=== PATIENT | male | born 1985 | race Caucasian/White ===

== ENCOUNTER 2017-01-03 21:28 | Emergency (ER) | payer BC, OTHER ==
[~2017-01-03] VITALS: Ht 167.6 cm; Wt 87.0 kg
[~2017-01-03 21:28] MED LIST: CHLO25 PO; METH40TA9 PO; XANA1TAB6 PO
[2017-01-03 21:45] VITALS: BP 123/87; PULSE 89; RESP 15; TEMP 98.2; O2SAT 97
[2017-01-03] MEDS ORDERED: CLON1 PO (22:58)
[2017-01-03] MEDS ORDERED: CYCL1TAB29 PO (22:58)
[2017-01-03] MEDS ORDERED: METH10TA PO (22:58)
[2017-01-04] MEDS ORDERED: KETOROLAC TROMETHAMINE 60 MG/2 ML (IM) VIAL IM ONE (00:15)
[2017-01-04] MEDS ORDERED: DIAZEPAM 5 MG TAB PO ONE (00:15)
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
--- NOTE | 2017-01-04 00:46 | RADRPT ---
EXAM DATE/TIME: 01/04/2017 00:31 [facility] COMPARISON: No previous studies available for comparison. INDICATIONS : Left hip pain post fall. MEDICAL HISTORY : None. SURGICAL HISTORY : None. ENCOUNTER: Initial ACUITY: 1 day PAIN SCORE: 6/10 LOCATION: Left hip. FINDINGS: Examination of the left hip was performed with AP Pelvis. The primary and secondary trabecular patte rn of the femoral neck is intact. The hip joint is of normal width without significant sclerosis or bony hypertrophy. The acetabulum is grossly intact. CONCLUSION: No acute fracture. Cih Cornejo MD on January 04, 2017 at 0:45 Board Certified Radiologist. This report was verified electronically.
--- NOTE | 2017-01-04 00:48 | RADRPT ---
EXAM DATE/TIME: 01/04/2017 00:31 [facility] COMPARISON: No previous studies available for comparison. INDICATIONS : Left knee pain post fall. MEDICAL HISTORY : None. SURGICAL HISTORY : None. ENCOUNTER: Initial ACUITY: 1 day PAIN SCORE: 6/10 LOCATION: Left knee. FINDINGS: Two view examination of the left knee demonstrates no evidence of fracture or dislocation. Bony mine ralization is normal. The suprapatellar soft tissues have a normal configuration. CONCLUSION: No acute fracture. Chi Cornejo MD on January 04, 2017 at 0:46 Board Certified Radiologist. This report was verified electronically.
== END 2017-01-04 01:24 | disposition home or self-care (01) ==
LOC: NEPD 21:28
DX: M25.562 Pain in left knee (principal); W01.0XXA Fall on same level from slipping, tripping and stumbling without subsequent striking against object, initial encounter; Y92.59 Other trade areas as the place of occurrence of the external cause
CPT/HCPCS: 73502; 73560; 96372; 99284; J1885

== ENCOUNTER 2017-10-07 04:52 | Inpatient (IN) ==
[2017-10-07] MEDS ORDERED: Sod Chloride 0.9% Inj 2,000 ML IV.SIG ONE (05:12)
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
--- NOTE | 2017-10-07 05:41 | XR ---
EXAM DATE: 10/07/2017 5:34 AM EDT AGE/SEX: 32 years / Male INDICATIONS: Fever. CLINICAL DATA: This is the patient's initial encounter. Patient reports that signs and symptoms have been present for 1 day and indicates a pain score of 0/10. MEDICAL/SURGICAL HISTORY: None. None. COMPARISON: No prior exams available for comparison. FINDINGS: A single AP view of the chest demonstrates the lungs to be symmetrically aerated without evidence of mass, infiltrate or effusion. The cardiomediastinal contours are unremarkable. Osseous structures a re intact. CONCLUSION: 1. No acute cardiopulmonary disease. Electronically signed by: Renny Ramachandran MD 10/07/2017 5:39 AM EDT
[2017-10-07 05:55] LABS: Baso % (Auto) 0.1 % (0.0-2.0); Eos % (Auto) 0.1 % (0.0-4.0); Hematocrit 39.6 % (39.0-51.0); Hemoglobin 13.4 gm/dL (13.0-17.0); Lymph # (Auto) 0.7 th/mm3 (1.0-4.8); Lymph % (Auto) 9.7 % (9.0-44.0); Mean Corpuscular HGB Conc 33.9 % (32.0-36.0); Mean Corpuscular Hemoglobin 28.5 pg (27.0-34.0); Mean Platelet Volume 9.6 fL (7.0-11.0); Mono # (Auto) 0.7 th/mm3 (0.0-0.9); Mono % (Auto) 9.1 % (0.0-8.0); Neut # (Auto) 6.3 th/mm3 (1.8-7.7); Platelet Count 238 th/mm3 (150-450); Red Blood Count 4.72 mil/mm3 (4.50-5.90); Red Cell Distribution Width 14.4 % (11.6-17.2); White Blood Count 7.8 th/mm3 (4.0-11.0)
[2017-10-07 06:00] LABS: Alanine Aminotransferase 43 U/L (12-78); Albumin 4.3 g/dL (3.4-5.0); Anion Gap 10 meq/L (5-15); Aspartate Aminotransferase 73 U/L (15-37); Blood Urea Nitrogen 18 mg/dL (7-18); Calcium 9.6 mg/dL (8.5-10.1); Carbon Dioxide 25.3 meq/L (21.0-32.0); Chloride 106 meq/L (98-107); Glomerular Filtration Rate 62 mL/min (>89); Glucose,Random 93 mg/dL (74-106); Potassium 4.4 meq/L (3.5-5.1); Sodium 141 meq/L (136-145)
[2017-10-07 06:14] LABS: Alkaline Phosphatase 114 U/L (45-117); Creatine Kinase 3163 U/L (39-308); Total Protein 8.5 g/dL (6.4-8.2)
[2017-10-07 06:29] LABS: CKMB Percent 0.7 % (0.0-4.0); Creatine Kinase MB 23.5 ng/mL (0.5-3.6)
[2017-10-07] MEDS ORDERED: Sod Chloride 0.9% Inj 1,000 ML IV.SIG ONE ×3 (06:50→06:53)
[2017-10-07] MEDS ORDERED: Bisacodyl 10 MG Supp RECTAL PRN (08:08)
[2017-10-07] MEDS ORDERED: Acetaminophen 325 MG Tablet PO PRN (08:08)
[2017-10-07] MEDS ORDERED: Sod Chloride 0.9% Inj 1,000 ML IV.CONT SCH (08:15)
[2017-10-07] MEDS ORDERED: Senna/Docusate Sodium 8.6/50 MG Tablet PO SCH (09:00)
[2017-10-07 09:29] LABS: Amorphous Sediment,Urine Rare /hpf; Bilirubin,Urine Negative (Negative); Clarity,Urine Cloudy (Clear); Color,Urine Yellow (Yellw/Straw); Glucose,Urine (UA) Negative (Negative); Hyaline Casts,Urine 4 /lpf (0-3); Leukocyte Esterase,Urine Negative (Negative); Mucus,Urine Few /lpf (Occasional); Nitrite,Urine Negative (Negative); Specific Gravity,Urine 1.027 (1.002-1.035)
[2017-10-07 09:31] LABS: Amphetamine Screen,Urine Pos (Neg); Barbiturate Screen,Urine Neg (Neg); Cannabinoid Screen,Urine Neg (Neg); Cocaine Screen,Urine Pos (Neg)
[2017-10-07 09:44] LABS: Opiate Screen,Urine Neg (Neg)
[2017-10-07] MEDS ORDERED: Phenol 1.4% 180 ML Spray Bottle OROPHARYNG PRN (12:31)
[2017-10-07] MEDS ORDERED: Menthol 5.8 MG Lozenge BUCCAL PRN (12:31)
--- NOTE | 2017-10-07 12:33 | P.HP ---
History of Present Illness Primary Care Physician: No Primary Care Physician History of Present Illness: This is a 32-year-old male who was brought in under police Scifiniti act. He apparently barricaded himself inside his house and was convinced that someone was trying to break into his house. He was evaluated by psychiatry who lifted Jonas act. States it is substance induced. Patient states he called the police because his friend who was belligerent was trying to break into his house. He has been hospitalized because of rhabdomyolysis CK over 3000. States he has been working on his motorcycle in his garage has not been hydrating well. He complains of chronic back and left knee pain. Denies illicit drug use. He is on methadone, Adderall and Klonopin. All other systems reviewed negative Inpatient Certification: I certify that the inpatient services were ordered in accordance with Medicare regulations governing the order. This includes certification that hospital inpatient services are reasonable and necessary and in the case of services not specified as inpatient-only under 42 CFR 419.22(n), that they are appropriately provided as inpatient services in accordance to with the 2-midnight benchmark under 43 CFR 412.3(e) Estimated Total Length of Stay (Days): 2 Plans for Post Hospital Care: Not yet determined Review of Systems All other systems reviewed negative except as stated in HPI PMFSH - History History Provided By: Patient - Medical History Medical History: Medical History (Last Reviewed 10/07/17 @ 13:30 by Renata Fraser) Left knee pain (Acute) Back pain - Surgical History Surgical History: Surgical History (Last Updated 10/07/17 @ 15:02 by Juan Kent MD) H/O left knee surgery - Family History Family History: Family History (Last Updated 10/07/17 @ 15:02 by Juan Kent MD) Other CAD (coronary artery disease) - Tobacco History Second Hand Smoke Exposure: Yes Tobacco Use In Past 30 Days: Yes Smoking Status: Current every day smoker Tobacco Type: Cigarettes - Alcohol History How Often Do You Have a Drink Containing Alcohol: Never - Substance Use History Substance History: Past History - Travel History Recent Travel in the [place] Within the Last 8 Weeks: No Recent Travel Out of the Country Within the Last 8 Weeks: No - Immunization History Tetanus Immunization: <5 Years Hx Influenza Vaccine This Season: No Medications and Allergies Active Medications: Active Medications Acetaminophen (Tylenol) 650 mg PO Q4H PRN PRN Reason: Temp > 100.4 Al Hydroxide/Mg Hydroxide (Milk Of Magnesia Liq) 30 ml PO Q12H PRN PRN Reason: Mild Constipation Amphetamine/Dextroamphetamine (Adderall) 20 mg PO TID [facility] Bisacodyl (Dulcolax Supp) 10 mg RECTAL DAILY PRN PRN Reason: SEVERE CONSITIPATION Cyclobenzaprine HCl (Flexeril) 10 mg PO TID [facility] Sodium Chloride (Ns Inj) 1,000 mls @ 100 mls/hr IV.CONT .Q10H [facility] Last Admin: 10/07/17 08:56 Dose: 100 mls/hr Lactulose (Lactulose Liq) 30 ml PO DAILY PRN PRN Reason: SEVERE CONSITIPATION Menthol ([place]) 1 lozenge BUCCAL Q1H PRN PRN Reason: SORE THROAT Methadone HCl (Dolophine) 10 mg PO Q4H [facility] Non-Formulary Medication (Clonazepam [Klonopin]) 2 mg PO TID [facility] Ondansetron HCl (Zofran Inj) 4 mg IV.PUSH Q6H PRN PRN Reason: NAUSEA OR VOMITING Senna/Docusate Sodium (Jeni-Colace) 1 tab PO BID [facility] Last Admin: 10/07/17 08:55 Dose: Not Given Sennosides (Senokot) 17.2 mg PO Q12H PRN PRN Reason: Moderate Constipation Throat Lozenges (Chloraseptic [place]) 2 spray OROPHARYNG Q2H PRN PRN Reason: SORE THROAT Allergies Allergy/AdvReac Type Severity Reaction Status Date / Time No Known Allergies Allergy Unverified 10/07/17 05:06 Home Medications Medication Instructions Recorded Confirmed Type clonazepam [Klonopin] 2 mg PO TID 10/07/17 10/07/17 History cyclobenzaprine 10 mg PO TID 10/07/17 10/07/17 History dextroamphetamine-amphetamine 20 mg PO TID 10/07/17 10/07/17 History [Adderall] ibuprofen 800 mg PO TID 10/07/17 10/07/17 History methadone 10 mg PO Q4H 10/07/17 10/07/17 History oxycodone-acetaminophen [Percocet] 1 tab PO Q4-6H PRN 10/07/17 10/07/17 History Exam Vital signs: Vital Signs 10/07/17 04:59 10/07/17 05:35 10/07/17 07:30 Temperature 100.8 F H 99.0 F Pulse Rate 131 H 98 H Respiratory Rate 16 17 Blood Pressure 175/83 H 107/60 Pulse Oximetry 97 97 10/07/17 08:54 10/07/17 11:34 Temperature 98.8 F Pulse Rate 93 H 90 Respiratory Rate 17 18 Blood Pressure 109/65 115/68 Pulse Oximetry 96 97 Intake & Output 10/06/17 10/07/17 10/07/17 18:59 06:59 18:59 Intake Total 3000 / 3000 Output Total 600 / 600 Balance 2400 / 2400 Weight 90.718 kg Intake: IV 3000 / 3000 NS Inj 1,000 ML @ Wide Open IV. 3000 / 3000 SIG BOLUS ONE Rx#:[id number] Output: Urine 600 / 600 Narrative: GENERAL: Well-developed and well-nourished in no distress SKIN: Warm and dry. HEAD: Atraumatic. Normocephalic. EYES: Pupils equal and round. No scleral icterus. No injection or drainage. ENT: No nasal bleeding or discharge. Mucous membranes pink and moist. NECK: Trachea midline. No JVD. CARDIOVASCULAR: Regular rate and rhythm. RESPIRATORY: No accessory muscle use. Clear to auscultation. Breath sounds equal bilaterally. GASTROINTESTINAL: Abdomen soft, non-tender, nondistended. MUSCULOSKELETAL: Extremities without clubbing, cyanosis, or edema. No obvious deformities. NEUROLOGICAL: Awake and alert. No obvious cranial nerve deficits. Motor grossly within normal limits. Five out of 5 muscle strength in the arms and legs. Normal speech. PSYCHIATRIC: Appropriate mood and affect; insight and judgment normal. Results - Labs CBC & Chem 7: 10/07/17 05:10 10/07/17 05:10 Labs: Laboratory Results - last 24 hr 10/07/17 10/07/17 10/07/17 05:10 05:10 05:10 WBC 7.8 RBC 4.72 Hgb 13.4 Hct 39.6 MCV 84.0 MCH 28.5 MCHC 33.9 RDW 14.4 Plt Count 238 MPV 9.6 Neut % (Auto) 81.0 H Lymph % (Auto) 9.7 [place] % (Auto) 9.1 H Eos % (Auto) 0.1 Baso % (Auto) 0.1 Neut # (Auto) 6.3 Lymph # (Auto) 0.7 L [place] # (Auto) 0.7 Eos # (Auto) 0.0 Baso # (Auto) 0.0 WBC Differential . Differential Comment Auto diff final Sodium 141 Potassium 4.4 Chloride 106 Carbon Dioxide 25.3 Anion Gap 10 BUN 18 Creatinine 1.32 H Estimated GFR 62 L Random Glucose 93 Lactic Acid Calcium 9.6 Total Bilirubin 0.5 AST 73 H ALT 43 Alkaline Phosphatase 114 Total Creatine Kinase 3163 H CK-MB (CK-2) 23.5 H CK-MB (CK-2) % 0.7 Total Protein 8.5 H Albumin 4.3 TSH 4.900 H Urine Color Urine Clarity Urine pH Ur Specific [place] Urine Protein Urine Glucose (UA) Urine Ketones Urine Occult Blood Urine Nitrate Urine Bilirubin Urine Urobilinogen Ur Leukocyte Esterase Urine RBC Urine WBC Amorphous Sediment Hyaline Casts Urine Mucus Micro UA Comment Urine Culture Comments Salicylates Less than 1.7 L Urine Opiates Screen Acetaminophen Less than 2.0 L Ur Barbiturates Screen Ur Amphetamines Screen U Benzodiazepines Scrn Urine Cocaine Screen U Cannabinoids Screen Serum Alcohol Less than 3 10/07/17 10/07/17 10/07/17 05:30 09:05 09:05 WBC RBC Hgb Hct MCV MCH MCHC RDW Plt Count MPV Neut % (Auto) Lymph % (Auto) [place] % (Auto) Eos % (Auto) Baso % (Auto) Neut # (Auto) Lymph # (Auto) [place] # (Auto) Eos # (Auto) Baso # (Auto) WBC Differential Differential Comment Sodium Potassium Chloride Carbon Dioxide Anion Gap BUN Creatinine Estimated GFR Random Glucose Lactic Acid 1.5 Calcium Total Bilirubin AST ALT Alkaline Phosphatase Total Creatine Kinase CK-MB (CK-2) CK-MB (CK-2) % Total Protein Albumin TSH Urine Color Yellow Urine Clarity Cloudy H Urine pH 5.0 Ur Specific [place] 1.027 Urine Protein 30 H Urine Glucose (UA) Negative Urine Ketones Negative Urine Occult Blood Negative Urine Nitrate Negative Urine Bilirubin Negative Urine Urobilinogen Less than 2 Ur Leukocyte Esterase Negative Urine RBC Less than 1 Urine WBC 3 Amorphous Sediment Rare H Hyaline Casts 4 Urine Mucus Few H Micro UA Comment Culture not ind Urine Culture Comments Culture not ind Salicylates Urine Opiates Screen Neg Acetaminophen Ur Barbiturates Screen Neg Ur Amphetamines Screen Pos H U Benzodiazepines Scrn Pos H Urine Cocaine Screen Pos H U Cannabinoids Screen Neg Serum Alcohol - Imaging Impressions Chest X-Ray 10/07/17 05:12 CONCLUSION: 1. No acute cardiopulmonary disease. Caprini VTE Risk Assessment Caprini VTE Risk Assessment: No/Low Risk (score <= 1) Caprini Risk Assessment Model: Point Value = 1 Point Value = 2 Point Value = 3 Point Value = 5 Age 41-60 Minor surgery BMI > 25 kg/m2 Swollen legs Varicose veins or History of unexplained or recurrent spontaneous Oral contraceptives or hormone replacement Sepsis (< 1 month) Serious lung disease, including pneumonia (< 1 month) Abnormal pulmonary function Acute myocardial infarction Congestive heart failure (< 1 month) History of inflammatory bowel disease Medical patient at bed rest Age 61-74 Arthroscopic surgery Major open surgery (> 45 min) Laparoscopic surgery (> 45 min) Malignancy Confined to bed (> 72 hours) Immobilizing plaster cast Central venous access Age >= 75 History of VTE Family history of VTE Factor V Leiden Prothrombin [id number] Lupus anticoagulant Anticardiolipin antibodies Elevated serum homocysteine Heparin-induced thrombocytopenia Other congenital or acquired thrombophilia Stroke (< 1 month) Elective arthroplasty Hip, pelvis, or leg fracture Acute spinal cord injury (< 1 month) Prophylaxis Regimen: Total Risk Factor Score Risk Level Prophylaxis Regimen 0-1 Low Early ambulation 2 Moderate Order ONE of the following: *Sequential Compression Device (SCD) *Heparin 5000 units SQ BID 3-4 Higher Order ONE of the following medications: *Heparin 5000 units SQ TID *Enoxaparin/Lovenox 40 mg SQ daily (WT < 150 kg, CrCl > 30 mL/min) *Enoxaparin/Lovenox 30 mg SQ daily (WT < 150 kg, CrCl > 10-29 mL/min) *Enoxaparin/Lovenox 30 mg SQ BID (WT < 150 kg, CrCl > 30 mL/min) AND/OR *Sequential Compression Device (SCD) 5 or more Highest Order ONE of the following medications: *Heparin 5000 units SQ TID (Preferred with Epidurals) *Enoxaparin/Lovenox 40 mg SQ daily (WT < 150 kg, CrCl > 30 mL/min) *Enoxaparin/Lovenox 30 mg SQ daily (WT < 150 kg, CrCl > 10-29 mL/min) *Enoxaparin/Lovenox 30 mg SQ BID (WT < 150 kg, CrCl > 30 mL/min) AND *Sequential Compression Device (SCD) Assessment and Plan - Plan This is a 32-year-old male who was brought in under police Scifiniti act. He apparently barricaded himself inside his house and was convinced that someone was trying to break into his house. He was evaluated by psychiatry who lifted Jonas act. States it is substance induced. Patient states he called the police because his friend who was belligerent was trying to break into his house. He has also been hospitalized because of rhabdomyolysis CK over 3000. Rhabdomyolysis. Received 4 L IV fluid in the emergency department. Continue IV hydration and monitor CK. Follow-up urine drug screen. SIRS secondary to above. Chest x-ray interpreted by me unremarkable. Patient complaining of sore throat examination unremarkable. Negative strep and flu screen. Follow-up blood cultures. Acute kidney injury secondary to rhabdomyolysis. As above. Avoid nephrotoxins. Repeat BMP in the morning Chronic back pain, ADHD and generalized anxiety. Will continue home medications for now to avoid withdrawal patient has been educated on the use of narcotic and benzodiazepines. If UDS comes back positive, will contact prescribing MD Discharge Planning: Home in 1-2 days
[2017-10-07] MEDS: clonazePAM 1 MG Tablet PO SCH ×2 (13:32→17:25)
[2017-10-07] MEDS ORDERED: Methadone 10 MG Tablet PO SCH (14:00)
[2017-10-07] MEDS ORDERED: Methadone 10 MG Tablet PO ONE (14:00)
[2017-10-07] MEDS: Amphetamine/Dextroamphetamine 20 MG Tablet PO SCH ×2 (14:59→17:25)
--- NOTE | 2017-10-07 16:06 | P.CONPSY ---
Provisional Diagnosis Admission Date: October 07, 2017 11:02 [place].: Polysubstance dependence including amphetamines, cocaine, cannabis, substance- induced mood disorder, history of anxiety and ADHD History of Present Illness Service: ER Primary Care Provider: No Primary Care Physician Family Provider: No Primary Care Physician History of Present Illness: The patient is a 32-year-old man, domiciled with his parents, single, unemployed, with self-reported psychiatric history of ADHD anxiety, no previous psychiatric hospitalizations, he reports that he has a psychiatrist when he does not remember the name prescribing him Adderall 20 mg 3 times daily, clonazepam 2 mg 3 times daily, who presents under Jonas act initially by the Police Department. According to his paperwork the patient apparently barricaded himself inside of his house and harm to himself and was convinced that someone was trying to break into his house. He called the police and asked that they were the ones were knocking on his door. He believes that the police were the ones were knocking on his door because he has a felony record any assume that there would be only ones that would be knocking on his door the middle of the night. He denies any feelings of paranoia. He denies any drug or alcohol use. He denies any suicidal or homicidal ideation, hallucinations. The patient's temperature is noted to be 100.8 and he is tachycardic. He does report that he may be dehydrated, he reports that he has been working out in the heat a lot not hydrating well. He has been working on his motorcycle. During review of systems he does endorse a sore throat today. He denies cough, congestion, chest pain, shortness of breath, abdominal pain, nausea vomiting, diarrhea, neck stiffness. Denies any IV drug use. He does report that he is on methadone prescribed. He has no other complaints. Patient is being admitted in medicine due to elevated CPK, SILAS and SIRS. On my psychiatric evaluation today the patient is calm, cooperative, he denies symptoms of depression at the moment. He is clinically sober. Logical, coherent and relevant. He claims that he does not remember the circumstances that brought him to the hospital on the Jonas act. At the same time he denies the use of cocaine and cannabis, and he says that he just uses he is prescribed clonazepam 2 mg 4 times per day and Adderall 20 mg 3 times daily, but he is unable to tell me who is prescribing him this medications. Denies suicidal enemas ideation, he denies visual and auditory hallucinations. [facility] - History History Provided By: Patient - Medical History Medical History: Medical History (Last Reviewed 10/07/17 @ 13:30 by Renata Fraser) Left knee pain (Acute) Back pain - Surgical History Surgical History: Surgical History (Last Updated 10/07/17 @ 15:02 by Juan Kent MD) H/O left knee surgery - Family History Family History: Family History (Last Updated 10/07/17 @ 15:02 by Juan Kent MD) Other CAD (coronary artery disease) - Tobacco History Second Hand Smoke Exposure: Yes Tobacco Use In Past 30 Days: Yes Smoking Status: Current every day smoker Tobacco Type: Cigarettes - Alcohol History How Often Do You Have a Drink Containing Alcohol: Never - Substance Use History Substance History: Past History - Travel History Recent Travel in the [place] Within the Last 8 Weeks: No Recent Travel Out of the Country Within the Last 8 Weeks: No - Immunization History Tetanus Immunization: <5 Years Hx Influenza Vaccine This Season: No Medications and Allergies Active Medications: Active Medications Acetaminophen (Tylenol) 650 mg PO Q4H PRN PRN Reason: Temp > 100.4 Last Admin: 10/07/17 14:29 Dose: 650 mg Al Hydroxide/Mg Hydroxide (Milk Of Magnesia Liq) 30 ml PO Q12H PRN PRN Reason: Mild Constipation Amphetamine/Dextroamphetamine (Adderall) 20 mg PO TID [facility] Last Admin: 10/07/17 14:59 Dose: 20 mg Bisacodyl (Dulcolax Supp) 10 mg RECTAL DAILY PRN PRN Reason: SEVERE CONSITIPATION Clonazepam (Klonopin) 2 mg PO TID [facility] Last Admin: 10/07/17 13:32 Dose: 2 mg Cyclobenzaprine HCl (Flexeril) 10 mg PO TID [facility] Last Admin: 10/07/17 13:32 Dose: 10 mg Sodium Chloride (Ns Inj) 1,000 mls @ 100 mls/hr IV.CONT .Q10H [facility] Last Admin: 10/07/17 08:56 Dose: 100 mls/hr Lactulose (Lactulose Liq) 30 ml PO DAILY PRN PRN Reason: SEVERE CONSITIPATION Menthol (Start) 1 lozenge BUCCAL Q1H PRN PRN Reason: SORE THROAT Methadone HCl (Dolophine) 60 mg PO DAILY [facility] Ondansetron HCl (Zofran Inj) 4 mg IV.PUSH Q6H PRN PRN Reason: NAUSEA OR VOMITING Senna/Docusate Sodium (Jeni-Colace) 1 tab PO BID [facility] Last Admin: 10/07/17 08:55 Dose: Not Given Sennosides (Senokot) 17.2 mg PO Q12H PRN PRN Reason: Moderate Constipation Throat Lozenges (Chloraseptic [place]) 2 spray OROPHARYNG Q2H PRN PRN Reason: SORE THROAT Allergies Allergy/AdvReac Type Severity Reaction Status Date / Time No Known Allergies Allergy Unverified 10/07/17 05:06 Home Medications Medication Instructions Recorded Confirmed Type clonazepam [Klonopin] 2 mg PO TID 10/07/17 10/07/17 History cyclobenzaprine 10 mg PO TID 10/07/17 10/07/17 History dextroamphetamine-amphetamine 20 mg PO TID 10/07/17 10/07/17 History [Adderall] ibuprofen 800 mg PO TID 10/07/17 10/07/17 History methadone 10 mg PO Q4H 10/07/17 10/07/17 History oxycodone-acetaminophen [Percocet] 1 tab PO Q4-6H PRN 10/07/17 10/07/17 History Exam Vital signs: Vital Signs 10/07/17 04:59 10/07/17 05:35 10/07/17 07:30 Temperature 100.8 F H 99.0 F Pulse Rate 131 H 98 H Respiratory Rate 16 17 Blood Pressure 175/83 H 107/60 Pulse Oximetry 97 97 10/07/17 08:54 10/07/17 11:34 Temperature 98.8 F Pulse Rate 93 H 90 Respiratory Rate 17 18 Blood Pressure 109/65 115/68 Pulse Oximetry 96 97 Intake & Output 10/06/17 10/07/17 10/07/17 18:59 06:59 18:59 Intake Total 3000 / 3000 Output Total 600 / 600 Balance 2400 / 2400 Weight 90.718 kg Intake: IV 3000 / 3000 NS Inj 1,000 ML @ Wide Open IV. 3000 / 3000 SIG BOLUS ONE Rx#:[id number] Output: Urine 600 / 600 Other: Date of Last Bowel Movement 10/06/17 Mental Status Examination Appearance: Appropriate Consciousness: Alert Orientation: x4 Motor Activity: Normal gait Speech: Unremarkable Language: Adequate Fund of Knowledge: Adequate Attention and Concentration: Adequate Memory: Unremarkable Affect: Appropriate Thought Process & Associations: Intact Thought Content: Appropriate Hallucination Type: None Delusion Type: None Suicidal Ideation: No Suicidal Plan: No Suicidal Intention: No Homicidal Ideation: No Homicidal Plan: No Homicidal Intention: No Insight: Fair Judgment: Impulsive Assessment and Plan - Assessment (1) Polysubstance dependence Code(s): F19.20 - Other psychoactive substance dependence, uncomplicated Status: Acute (2) Polysubstance dependence Code(s): F19.20 - Other psychoactive substance dependence, uncomplicated Status: Acute (3) Polysubstance dependence Code(s): F19.20 - Other psychoactive substance dependence, uncomplicated Status: Acute - Plan Plan: Estimated LOS: [] days On my psychiatric evaluation today the patient is calm, cooperative, clinically sober, logical, coherent and relevant. The patient does not display to or exhibit any neuropsychiatric symptoms or require an immediate psychiatric intervention. The patient denies depression, denies anxiety, denies leoncio and psychosis. He denies suicidal and homicidal ideation. He denies visual and auditory hallucinations. It seems to me that his initially described psychosis and aggressive behavior was most probably the result of multiple drugs intoxication and no secondary to a primary mood or psychotic disorder. Brief supportive psychotherapy, psychoeducation and motivation provided. He does not meet criteria for involuntary psychiatric admission at the moment. Jonas act will be lifted. Unfortunately, given his history of polysubstance abuse, and given the fact that a psychiatric history and prescriber cannot be confirmed, I am not recommending any psychotropic other than a CIWA protocol to avoid a potential benzodiazepine withdrawal. Consult appreciated Justification for Continued Inpatient Stay: The patient does not meet criteria for involuntary psychiatric admission. Jonas act will be lifted
[2017-10-08] MEDS ORDERED: Methadone 10 MG Tablet PO SCH (09:00)
== END 2017-10-07 22:41 | disposition left against medical advice (07) ==
LOC: NEDA 04:52 → NEPD 04:52 → N06 11:49
PROVIDERS: ADMIT Internal Medicine; ATTEND Internal Medicine